=== PATIENT | female | born 1950 | race Caucasian/White ===

== ENCOUNTER → 2019-03-09 | Day surgery (SDC) | payer MEDICARE ==
[~2019-03-09] MED LIST: IV RINGERS,LACTATED 1000ML 1,000 ML IV ONE; LEVO25TA4 PO; PROPOFOL 20 ML IV ONE; ROPI0.5T2 PO
[2019-03-09 10:31] VITALS: BP 114/58
--- NOTE | 2019-03-10 01:16 | CONS ---
DATE OF CONSULTATION: 03/09/2019 REFERRING PHYSICIAN: Dr. Cassie Devine. REASON FOR CONSULTATION: History of colonic polyps. HISTORY OF PRESENT ILLNESS: This is a 68-year-old female whose past medical history is significant for hypothyroidism as well as history of colonic polyps, is seen for interval colon examination. Last examination was 10 years ago. There has been no change in her constipation. There has been no melena and/or hematochezia. Weight and appetite are stable and there is positive family history of colon cancer with her mother. She otherwise is in good health and has no additional complaints. PAST MEDICAL HISTORY: Hypothyroidism and family history of colon cancer. ALLERGIES: None. MEDICATIONS: Include levothyroxine and ropinirole. FAMILY HISTORY: Significant for polyps with her mother, heart attack with her father, and ulcerative colitis with her grandmother. PAST SURGICAL HISTORY: Status post hysterectomy. REVIEW OF SYSTEMS: Per records. PHYSICAL EXAMINATION: GENERAL: Reveals a well-nourished, well-developed female, who is alert, cooperative, and in no acute distress. VITAL SIGNS: Temperature 97, pulse 86, and respirations 20. HEENT: Reveals normocephalic, atraumatic head. Pupils and extraocular muscles are not tested. Sclerae are anicteric. NECK: Supple. LUNGS: Clear. CARDIOVASCULAR: Reveals an S1, S2 without S3, S4, or appreciable murmur. ABDOMEN: Reveals a soft abdomen, normoactive bowel sounds, without appreciable hepatosplenomegaly. EXTREMITIES: Reveal no cyanosis, clubbing, or edema. IMPRESSION: History of colonic polyps and family history of colon cancer. PLAN: Surveillance examination is recommended at this time. Risks and benefits of procedure including risk of hemorrhage and perforation requiring operation were discussed. The patient is willing to proceed. YOLANDA MORRISON MD DR: DALILA/radha JOB#: [id number] / [id number]
--- NOTE | 2019-03-12 15:07 | PATHOLOGY ---
[facility] Accession Number: [id number] . 01 Material submitted: . rectum - RECTAL POLYPS . 01 Clinical history: . Screening . 02 Diagnosis: Colorectal biopsies, rectal polyps: - Hyperplastic polyps, with chronic inflammation (JPM:cornelia; 03/12/2019) QMS 03/12/2019 0910 Local . 02 Comment: There are no adenomatous changes or evidence of malignancy. . 02 Electronically signed: . Wagner Solorzano MD, Pathologist NPI- [id number] . 01 Gross description: . Received in formalin labeled "Hans, Rossi, rectal polyps," are 2 segments of castillo soft tissue measuring 0.6 x 0.3 x 0.2 cm in aggregate dimensions and ranging from 0.2 to 0.4 cm in maximum dimension. The specimen is submitted entirely in cassette A1. (TSD; 03/09/2019) TOB/TOB 03/09/2019 1948 Local . 02 Pathologist provided ICD-10: K62.1 . 02 CPT . 634470 Specimen Comment: A courtesy copy of this report has been sent to Specimen Comment: [phone], . Specimen Comment: Report sent to / DR TATUM Specimen Comment: A duplicate report has been generated due to demographic updates. Performed at: 01 [facility] [address], [place] [id number] MD Wil Celis MD Phone: [phone] Performed at: 02 [facility] [address] [place], [place] [id number] MD Wagner Solorzano MD Phone: [phone]
== END ==
LOC: SURG 08:34
PROVIDERS: ATTEND Internal Medicine Gastroenterology
DX: Z12.11 Encounter for screening for malignant neoplasm of colon (principal); K63.5 Polyp of colon; K64.0 First degree hemorrhoids; E03.9 Hypothyroidism, unspecified; Z80.0 Family history of malignant neoplasm of digestive organs; Z86.010 Personal history of colon polyps; Z90.710 Acquired absence of both cervix and uterus
CPT/HCPCS: 45385; 88305; J2704; 45380